=== PATIENT | female | born 1995 | race Caucasian/White ===

== ENCOUNTER 2018-12-31 16:07 | Inpatient (IN) | payer OTHER ==
[~2018-12-31] VITALS: Ht 129.5 cm; Wt 36.6 kg
[2018-12-31] VITALS (27 sets, daily range): BP systolic 91–123; BP diastolic 56–94; PULSE 96–110; RESP 14–45
[~2018-12-31 16:07] MED LIST: ACET325S GTB; BALS3OIN TP; BISA10SU55 RC; CHLO473M4 MM; CIPR500T4 GTB; DOCU50LI23 GTB; ENOX30DI2 SC; FLUC200T52 GTB; HYDR-3670 IV*; IVAB5TAB PO; LABE5VIA IV; LACT10SO21 PO; LEVA0.3129 INHALATION; LEVE500S8 GTB; LORA5SOL41 GTB; MAGN400O19 GTB; METO-448 GTB; MULT9LIQ4 G-TUBE; NA P133E10 RC; NYST1000 PO; ONDA4SOL IV*; POLY17PO6 GTB; PROC5VIA4 IV; PSL6PK GTB; VALP250S3 GTB; [UNRECOGNIZED DRUG - CODE] GTB
[2018-12-31] MEDS ORDERED: ROCURONIUM 50 MG INJ ONE (18:53)
[2018-12-31] MEDS ORDERED: ONDANSETRON 4 MG INJ ONE (18:53)
[2018-12-31] MEDS ORDERED: MIDAZOLAM 1 MG/ML 2 ML INJ ONE (19:17)
[2018-12-31] MEDS: morphine 2 MG INJ IV PRN (22:01)
[2018-12-31] MEDS: ONDANSETRON 4 MG INJ IV PRN (22:01)
[2019-01-01] VITALS (17 sets, daily range): BP systolic 126–134; BP diastolic 68–88; PULSE 111–124; RESP 14–16
[2019-01-01] MEDS: D5-NS + KCL 20 MEQ 1,000 ML IV SCH ×3 (02:47→13:14)
[2019-01-01] MEDS: morphine 2 MG INJ IV PRN ×3 (03:51→15:41)
[2019-01-01] MEDS: PANTOPRAZOLE 40 MG INJ IV SCH (06:16)
[2019-01-01] MEDS: ENOXAPARIN 40 MG/0.4 ML SYG SC SCH (10:16)
[2019-01-01] MEDS ORDERED: PROCHLORPERAZINE 10 MG INJ IV PRN (10:30)
[2019-01-01] MEDS ORDERED: TRIMETHOBENZAMIDE 300 MG CAP GTB PRN (10:30)
[2019-01-01] MEDS ORDERED: LEVALBUTEROL (NEB) 0.31 MG/3 ML AMP NEB PRN (10:30)
[2019-01-01] MEDS ORDERED: ONDANSETRON (2 MG/2.5 ML PO SYG) GTB PRN (10:30)
[2019-01-01] MEDS ORDERED: ONDANSETRON 4 MG TAB GTB PRN (11:30)
[2019-01-01] MEDS ORDERED: LABETALOL 100MG INJ IV SCH (12:00)
[2019-01-01] MEDS: LABETALOL HCL 20MG INJ IV SCH ×2 (12:56→18:28)
[2019-01-01] MEDS: NYSTATIN SUSP 5 ML CUP PO SCH ×3 (13:00→21:00)
[2019-01-01] MEDS: LACTULOSE 30ML CUP PO SCH ×2 (13:00→21:00)
[2019-01-01] MEDS: CEFEPIME 1GM/50 ML (PMX) 50 ML IVPB SCH ×2 (13:14→22:05)
[2019-01-01] MEDS: METOPROLOL 25 MG TAB GTB SCH ×2 (14:00→22:00)
[2019-01-01] MEDS: VALPROIC ACID LIQUID CUP 250 MG/5 ML CUP GTB SCH (16:58)
[2019-01-01] MEDS: CIPROFLOXACIN 500 MG TAB GTB SCH (21:00)
[2019-01-01] MEDS: POLYETHYLENE GLYCOL 17 GM PACKET GTB SCH (21:00)
[2019-01-01] MEDS ORDERED: VALPROIC ACID LIQUID CUP 250 MG/5 ML CUP GTB SCH (21:00)
[2019-01-01] MEDS: DOCUSATE SODIUM 10 MG/ML (10ML CUP) GTB SCH (21:00)
[2019-01-01] MEDS ORDERED: VANCOMYCIN IV PER PHARMACY XX SCH (21:00)
[2019-01-01] MEDS ORDERED: VANCOMYCIN 750 MG (PMX) 250 ML IVPB SCH (21:30)
[2019-01-01] MEDS: CHLORHEXIDINE GLUCONATE 15 ML UD CUP MM SCH (21:57)
[2019-01-02] VITALS (19 sets, daily range): BP systolic 113–128; BP diastolic 62–84; PULSE 65–111; RESP 14–17
[2019-01-02] MEDS: LEVETIRACETAM 1000 MG (PMX) 100 ML IVPB SCH ×3 (00:09→21:50)
[2019-01-02] MEDS: morphine 2 MG INJ IV PRN ×2 (00:11→11:23)
[2019-01-02] MEDS: LABETALOL HCL 20MG INJ IV SCH ×4 (00:38→18:41)
[2019-01-02] MEDS: D5-NS + KCL 20 MEQ 1,000 ML IV SCH ×3 (01:55→21:58)
[2019-01-02] MEDS: METOPROLOL 25 MG TAB GTB SCH ×3 (06:00→22:00)
[2019-01-02] MEDS: PANTOPRAZOLE 40 MG INJ IV SCH (06:16)
[2019-01-02] MEDS: ENOXAPARIN 40 MG/0.4 ML SYG SC SCH (06:52)
[2019-01-02] MEDS: POTASSIUM CHLORIDE 100 ML IVPB SCH ×2 (07:57→11:22)
[2019-01-02] MEDS ORDERED: MAGNESIUM SULFATE 2 GM/50 ML 50 ML IVPB ONE (08:00)
[2019-01-02] MEDS ORDERED: LORATADINE (1 MG/ML PO SYG) GTB SCH (09:00)
[2019-01-02] MEDS: MAGNESIUM HYDROXIDE 30ML CUP GTB SCH (09:00)
[2019-01-02] MEDS: CIPROFLOXACIN 500 MG TAB GTB SCH ×2 (09:00→21:00)
[2019-01-02] MEDS: NYSTATIN SUSP 5 ML CUP PO SCH ×4 (09:00→21:00)
[2019-01-02] MEDS ORDERED: BISACODYL 10 MG SUPP PR SCH (09:00)
[2019-01-02] MEDS: DOCUSATE SODIUM 10 MG/ML (10ML CUP) GTB SCH ×2 (09:00→21:00)
[2019-01-02] MEDS: VALPROIC ACID LIQUID CUP 250 MG/5 ML CUP GTB SCH (09:00)
[2019-01-02] MEDS: LACTULOSE 30ML CUP PO SCH ×2 (09:00→12:00)
[2019-01-02] MEDS: POLYETHYLENE GLYCOL 17 GM PACKET GTB SCH (09:00)
[2019-01-02] MEDS: FLUCONAZOLE 200 MG TAB GTB SCH (09:00)
[2019-01-02] MEDS ORDERED: NA PHOSPHATE/BIPHOS 133 ML ENEMA PR SCH (09:00)
[2019-01-02] MEDS: CEFEPIME 1GM/50 ML (PMX) 50 ML IVPB SCH ×2 (09:47→22:23)
[2019-01-02] MEDS: CHLORHEXIDINE GLUCONATE 15 ML UD CUP MM SCH ×2 (10:32→22:23)
[2019-01-02] MEDS: VANCOMYCIN 500 MG (PMX) 100 ML IVPB SCH (11:22)
[2019-01-02] MEDS: VALPROATE INJ 250 MG in SOD CHLORIDE 0.9% 50 ML IVPB SCH ×2 (16:32→22:51)
[2019-01-03] VITALS (18 sets, daily range): BP systolic 99–125; BP diastolic 60–80; PULSE 101–110; RESP 14–20
[2019-01-03] MEDS: VANCOMYCIN 500 MG (PMX) 100 ML IVPB SCH (00:09)
[2019-01-03] MEDS: LABETALOL HCL 20MG INJ IV SCH ×4 (00:21→17:10)
[2019-01-03] MEDS: METOPROLOL 25 MG TAB GTB SCH ×3 (06:00→21:30)
[2019-01-03] MEDS: PANTOPRAZOLE 40 MG INJ IV SCH (06:36)
[2019-01-03] MEDS: VALPROATE INJ 250 MG in SOD CHLORIDE 0.9% 50 ML IVPB SCH ×3 (06:43→21:32)
[2019-01-03] MEDS ORDERED: IOHEXOL 14.3 MG(I)/ML (ADULT) BTL PO ONE ×2 (08:30→09:30)
[2019-01-03] MEDS: CIPROFLOXACIN 500 MG TAB GTB SCH (09:00)
[2019-01-03] MEDS: LORATADINE 10 MG TAB GTB SCH (09:00)
[2019-01-03] MEDS: MAGNESIUM HYDROXIDE 30ML CUP GTB SCH (09:00)
[2019-01-03] MEDS: FLUCONAZOLE 200 MG TAB GTB SCH (09:00)
[2019-01-03] MEDS ORDERED: ACETAMINOPHEN (10 MG/ML) IV SYG IV* PRN (09:30)
[2019-01-03] MEDS ORDERED: ACETAMINOPHEN 1000MG/100ML IV 65 ML IVPB PRN (10:00)
[2019-01-03] MEDS: NYSTATIN SUSP 5 ML CUP PO SCH ×4 (10:09→21:00)
[2019-01-03] MEDS: CHLORHEXIDINE GLUCONATE 15 ML UD CUP MM SCH ×2 (10:09→22:52)
[2019-01-03] MEDS: D5-NS + KCL 20 MEQ 1,000 ML IV SCH ×3 (10:10→22:51)
[2019-01-03] MEDS: LEVETIRACETAM 1000 MG (PMX) 100 ML IVPB SCH ×2 (10:11→20:08)
[2019-01-03] MEDS: CEFEPIME 1GM/50 ML (PMX) 50 ML IVPB SCH ×2 (10:11→20:37)
[2019-01-03] MEDS: ENOXAPARIN 40 MG/0.4 ML SYG SC SCH (10:30)
[2019-01-03] MEDS ORDERED: VANCOMYCIN 500 MG (PMX) 100 ML IVPB SCH (16:00)
[2019-01-04] VITALS (18 sets, daily range): BP systolic 111–130; BP diastolic 17–85; PULSE 72–108; RESP 14–20
[2019-01-04] MEDS: LABETALOL HCL 20MG INJ IV SCH ×2 (06:00)
[2019-01-04] MEDS: METOPROLOL 25 MG TAB GTB SCH ×3 (06:00→22:00)
[2019-01-04] MEDS: PANTOPRAZOLE 40 MG INJ IV SCH (06:35)
[2019-01-04] MEDS: ENOXAPARIN 40 MG/0.4 ML SYG SC SCH (06:45)
[2019-01-04] MEDS ORDERED: LABETALOL HCL 20MG INJ IV PRN (07:00)
[2019-01-04] MEDS: VALPROATE INJ 250 MG in SOD CHLORIDE 0.9% 50 ML IVPB SCH ×3 (07:06→22:52)
[2019-01-04] MEDS: CHLORHEXIDINE GLUCONATE 15 ML UD CUP MM SCH ×2 (09:00→21:41)
[2019-01-04] MEDS: FLUCONAZOLE 200 MG TAB GTB SCH (09:00)
[2019-01-04] MEDS ORDERED: IOHEXOL 14.3 MG(I)/ML (ADULT) BTL PO ONE (09:00)
[2019-01-04] MEDS: LORATADINE 10 MG TAB GTB SCH (09:00)
[2019-01-04] MEDS: MAGNESIUM HYDROXIDE 30ML CUP GTB SCH (09:00)
[2019-01-04] MEDS: NYSTATIN SUSP 5 ML CUP PO SCH ×4 (09:00→21:00)
[2019-01-04] MEDS: CEFEPIME 1GM/50 ML (PMX) 50 ML IVPB SCH ×2 (09:15→21:36)
[2019-01-04] MEDS: LEVETIRACETAM 1000 MG (PMX) 100 ML IVPB SCH ×2 (09:16→20:58)
[2019-01-04] MEDS: VANCOMYCIN 500 MG (PMX) 100 ML IVPB SCH (11:18)
[2019-01-04] MEDS ORDERED: IOHEXOL 300MG/ML 150 ML BTL ONE (13:33)
[2019-01-04] MEDS ORDERED: SOD CHLORIDE 0.9% 100 ML ONE (13:33)
[2019-01-04] MEDS: D5-NS + KCL 20 MEQ 1,000 ML IV SCH ×2 (14:28→23:55)
[2019-01-05] VITALS (18 sets, daily range): BP systolic 107–137; BP diastolic 65–88; PULSE 67–100; RESP 14–20
[2019-01-05] MEDS: VANCOMYCIN 500 MG (PMX) 100 ML IVPB SCH ×2 (03:35→21:32)
[2019-01-05] MEDS: PANTOPRAZOLE 40 MG INJ IV SCH (05:38)
[2019-01-05] MEDS: VALPROATE INJ 250 MG in SOD CHLORIDE 0.9% 50 ML IVPB SCH (05:39)
[2019-01-05] MEDS: METOPROLOL 25 MG TAB GTB SCH ×3 (05:43→21:33)
[2019-01-05] MEDS: ENOXAPARIN 40 MG/0.4 ML SYG SC SCH (07:03)
[2019-01-05] MEDS: MAGNESIUM HYDROXIDE 30ML CUP GTB SCH (09:00)
[2019-01-05] MEDS ORDERED: MAGNESIUM SULFATE 2 GM/50 ML 50 ML IVPB ONE (09:00)
[2019-01-05] MEDS: LEVETIRACETAM 1000 MG (PMX) 100 ML IVPB SCH ×2 (09:05→20:00)
[2019-01-05] MEDS: CHLORHEXIDINE GLUCONATE 15 ML UD CUP MM SCH ×2 (09:13→20:33)
[2019-01-05] MEDS: NYSTATIN SUSP 5 ML CUP PO SCH ×4 (09:50→20:33)
[2019-01-05] MEDS: FLUCONAZOLE 200 MG TAB GTB SCH (09:50)
[2019-01-05] MEDS: LORATADINE 10 MG TAB GTB SCH (09:50)
[2019-01-05] MEDS: CEFEPIME 1GM/50 ML (PMX) 50 ML IVPB SCH ×2 (09:51→20:33)
[2019-01-05] MEDS: POTASSIUM CHLORIDE 100 ML IVPB SCH ×2 (13:46→16:54)
[2019-01-05] MEDS: morphine 2 MG INJ IV PRN ×2 (15:44→21:32)
[2019-01-05] MEDS: D5-NS + KCL 20 MEQ 1,000 ML IV SCH ×2 (16:58→19:56)
[2019-01-05] MEDS: METOCLOPRAMIDE 10 MG INJ IV SCH (17:06)
[2019-01-05] MEDS: VALPROATE INJ 500 MG in SOD CHLORIDE 0.9% 50 ML IVPB SCH (18:10)
[2019-01-06] VITALS (18 sets, daily range): BP systolic 97–141; BP diastolic 52–84; PULSE 72–108; RESP 14–28
[2019-01-06] MEDS: METOCLOPRAMIDE 10 MG INJ IV SCH ×5 (00:26→23:58)
[2019-01-06] MEDS: VALPROATE INJ 500 MG in SOD CHLORIDE 0.9% 50 ML IVPB SCH ×2 (03:39→14:00)
[2019-01-06] MEDS: PANTOPRAZOLE 40 MG INJ IV SCH (06:07)
[2019-01-06] MEDS: METOPROLOL 25 MG TAB GTB SCH ×3 (06:08→21:13)
[2019-01-06] MEDS: ENOXAPARIN 40 MG/0.4 ML SYG SC SCH (06:17)
[2019-01-06] MEDS: CEFEPIME 1GM/50 ML (PMX) 50 ML IVPB SCH ×2 (09:33→21:35)
[2019-01-06] MEDS: LEVETIRACETAM 1000 MG (PMX) 100 ML IVPB SCH ×2 (09:34→21:12)
[2019-01-06] MEDS: LORATADINE 10 MG TAB GTB SCH (09:34)
[2019-01-06] MEDS: FLUCONAZOLE 200 MG TAB GTB SCH (09:34)
[2019-01-06] MEDS: NYSTATIN SUSP 5 ML CUP PO SCH ×4 (09:35→22:15)
[2019-01-06] MEDS: MAGNESIUM HYDROXIDE 30ML CUP GTB SCH (09:35)
[2019-01-06] MEDS: CHLORHEXIDINE GLUCONATE 15 ML UD CUP MM SCH ×2 (09:35→21:13)
[2019-01-06] MEDS: D5W-0.45 NACL + KCL 20 MEQ 1,000 ML IV SCH ×2 (09:39→21:13)
[2019-01-06] MEDS: VANCOMYCIN 500 MG (PMX) 100 ML IVPB SCH ×2 (10:09→22:15)
[2019-01-07] VITALS (18 sets, daily range): BP systolic 95–131; BP diastolic 55–79; PULSE 60–98; RESP 14–20
[2019-01-07] MEDS: VALPROATE INJ 500 MG in SOD CHLORIDE 0.9% 50 ML IVPB SCH (01:49)
[2019-01-07] MEDS: METOCLOPRAMIDE 10 MG INJ IV SCH ×3 (05:53→17:16)
[2019-01-07] MEDS: PANTOPRAZOLE 40 MG INJ IV SCH (05:53)
[2019-01-07] MEDS: METOPROLOL 25 MG TAB GTB SCH ×3 (05:54→22:25)
[2019-01-07] MEDS: ENOXAPARIN 40 MG/0.4 ML SYG SC SCH (06:27)
[2019-01-07] MEDS: CHLORHEXIDINE GLUCONATE 15 ML UD CUP MM SCH ×2 (07:51→22:25)
[2019-01-07] MEDS: NYSTATIN SUSP 5 ML CUP PO SCH ×4 (07:52→22:25)
[2019-01-07] MEDS: MAGNESIUM HYDROXIDE 30ML CUP GTB SCH (07:52)
[2019-01-07] MEDS: CEFEPIME 1GM/50 ML (PMX) 50 ML IVPB SCH ×2 (07:52→22:25)
[2019-01-07] MEDS: LORATADINE 10 MG TAB GTB SCH (07:52)
[2019-01-07] MEDS: LEVETIRACETAM 1000 MG (PMX) 100 ML IVPB SCH ×2 (07:52→20:26)
[2019-01-07] MEDS: FLUCONAZOLE 200 MG TAB GTB SCH (07:52)
[2019-01-07] MEDS: VANCOMYCIN 500 MG (PMX) 100 ML IVPB SCH ×2 (10:25→22:38)
[2019-01-07] MEDS: D5W-0.45 NACL + KCL 20 MEQ 1,000 ML IV SCH (10:25)
[2019-01-07] MEDS ORDERED: MAGNESIUM SULFATE 2 GM/50 ML 50 ML IVPB ONE (11:00)
[2019-01-07] MEDS: POTASSIUM CHLORIDE 100 ML IVPB SCH ×2 (13:35→15:43)
[2019-01-07] MEDS: ACETAMINOPHEN 650MG/20.3ML CUP GTB PRN (22:28)
[2019-01-08] VITALS (19 sets, daily range): BP systolic 84–144; BP diastolic 45–78; PULSE 63–105; RESP 14–19
[2019-01-08] MEDS: METOCLOPRAMIDE 10 MG INJ IV SCH ×5 (00:32→23:03)
[2019-01-08] MEDS: VALPROATE INJ 250 MG in SOD CHLORIDE 0.9% 50 ML IVPB SCH ×2 (01:49→13:36)
[2019-01-08] MEDS: PANTOPRAZOLE 40 MG INJ IV SCH (06:37)
[2019-01-08] MEDS: METOPROLOL 25 MG TAB GTB SCH ×3 (06:38→21:37)
[2019-01-08] MEDS: ENOXAPARIN 40 MG/0.4 ML SYG SC SCH (07:03)
[2019-01-08] MEDS: MAGNESIUM HYDROXIDE 30ML CUP GTB SCH (09:00)
[2019-01-08] MEDS: FLUCONAZOLE 200 MG TAB GTB SCH (09:51)
[2019-01-08] MEDS: NYSTATIN SUSP 5 ML CUP PO SCH ×4 (09:51→21:36)
[2019-01-08] MEDS: CHLORHEXIDINE GLUCONATE 15 ML UD CUP MM SCH ×2 (09:51→21:36)
[2019-01-08] MEDS: LORATADINE 10 MG TAB GTB SCH (09:51)
[2019-01-08] MEDS: ONDANSETRON 4 MG INJ IV PRN ×2 (09:51→21:36)
[2019-01-08] MEDS: CEFEPIME 1GM/50 ML (PMX) 50 ML IVPB SCH ×2 (09:51→21:37)
[2019-01-08] MEDS: LEVETIRACETAM 1000 MG (PMX) 100 ML IVPB SCH ×2 (09:52→21:37)
[2019-01-08] MEDS: VANCOMYCIN 500 MG (PMX) 100 ML IVPB SCH ×2 (10:24→22:55)
[2019-01-08] MEDS: D5W-0.45 NACL + KCL 20 MEQ 1,000 ML IV SCH ×2 (10:24)
[2019-01-08] MEDS: ACETAMINOPHEN 650MG/20.3ML CUP GTB PRN (21:36)
[2019-01-09] VITALS (17 sets, daily range): BP systolic 99–137; BP diastolic 55–77; PULSE 85–107; RESP 14–19
[2019-01-09] MEDS: VALPROATE INJ 250 MG in SOD CHLORIDE 0.9% 50 ML IVPB SCH ×3 (01:47→17:26)
[2019-01-09] MEDS: D5W-0.45 NACL + KCL 20 MEQ 1,000 ML IV SCH ×2 (02:40→06:35)
[2019-01-09] MEDS: METOCLOPRAMIDE 10 MG INJ IV SCH ×4 (06:24→23:58)
[2019-01-09] MEDS: PANTOPRAZOLE 40 MG INJ IV SCH (06:24)
[2019-01-09] MEDS: METOPROLOL 25 MG TAB GTB SCH ×3 (06:27→22:15)
[2019-01-09] MEDS: ENOXAPARIN 40 MG/0.4 ML SYG SC SCH (06:52)
[2019-01-09] MEDS: MAGNESIUM HYDROXIDE 30ML CUP GTB SCH (09:00)
[2019-01-09] MEDS: LEVETIRACETAM 1000 MG (PMX) 100 ML IVPB SCH ×2 (09:00→22:14)
[2019-01-09] MEDS: CHLORHEXIDINE GLUCONATE 15 ML UD CUP MM SCH ×2 (09:00→22:14)
[2019-01-09] MEDS: NYSTATIN SUSP 5 ML CUP PO SCH ×4 (09:01→22:14)
[2019-01-09] MEDS: LORATADINE 10 MG TAB GTB SCH (09:37)
[2019-01-09] MEDS: FLUCONAZOLE 200 MG TAB GTB SCH (09:37)
[2019-01-09] MEDS: CEFEPIME 1GM/50 ML (PMX) 50 ML IVPB SCH (09:37)
[2019-01-09] MEDS: VANCOMYCIN 500 MG (PMX) 100 ML IVPB SCH ×3 (10:36→23:59)
[2019-01-10] VITALS (21 sets, daily range): BP systolic 92–120; BP diastolic 54–73; PULSE 79–112; RESP 14–25
[2019-01-10] MEDS: VALPROATE INJ 250 MG in SOD CHLORIDE 0.9% 50 ML IVPB SCH ×3 (02:17→18:21)
[2019-01-10] MEDS: METOCLOPRAMIDE 10 MG INJ IV SCH ×3 (05:48→18:21)
[2019-01-10] MEDS: PANTOPRAZOLE 40 MG INJ IV SCH (05:48)
[2019-01-10] MEDS: ENOXAPARIN 40 MG/0.4 ML SYG SC SCH (06:41)
[2019-01-10] MEDS: METOPROLOL 25 MG TAB GTB SCH ×2 (09:00→21:00)
[2019-01-10] MEDS: FLUCONAZOLE 200 MG TAB GTB SCH (09:42)
[2019-01-10] MEDS: MAGNESIUM HYDROXIDE 30ML CUP GTB SCH (09:43)
[2019-01-10] MEDS: NYSTATIN SUSP 5 ML CUP PO SCH ×4 (09:43→20:46)
[2019-01-10] MEDS: CHLORHEXIDINE GLUCONATE 15 ML UD CUP MM SCH ×2 (09:43→20:46)
[2019-01-10] MEDS: LORATADINE 10 MG TAB GTB SCH (09:44)
[2019-01-10] MEDS: LEVETIRACETAM 1000 MG (PMX) 100 ML IVPB SCH ×2 (09:44→20:46)
[2019-01-10] MEDS: VANCOMYCIN 500 MG (PMX) 100 ML IVPB SCH ×2 (12:36→21:39)
[2019-01-11] VITALS (18 sets, daily range): BP systolic 100–146; BP diastolic 57–93; PULSE 94–128; RESP 14–18
[2019-01-11] MEDS: METOCLOPRAMIDE 10 MG INJ IV SCH ×4 (00:21→17:29)
[2019-01-11] MEDS: VALPROATE INJ 250 MG in SOD CHLORIDE 0.9% 50 ML IVPB SCH ×3 (01:33→17:29)
[2019-01-11] MEDS: morphine 2 MG INJ IV PRN ×2 (04:24→22:48)
[2019-01-11] MEDS: PANTOPRAZOLE 40 MG INJ IV SCH (05:33)
[2019-01-11] MEDS: ENOXAPARIN 40 MG/0.4 ML SYG SC SCH (06:23)
[2019-01-11] MEDS ORDERED: NEUTRA-PHOS 250 MG PACKET PO ONE (08:30)
[2019-01-11] MEDS: METOPROLOL 25 MG TAB GTB SCH ×2 (09:00→21:28)
[2019-01-11] MEDS: LEVETIRACETAM 1000 MG (PMX) 100 ML IVPB SCH ×2 (09:23→21:29)
[2019-01-11] MEDS: CHLORHEXIDINE GLUCONATE 15 ML UD CUP MM SCH ×2 (09:27→21:29)
[2019-01-11] MEDS: NYSTATIN SUSP 5 ML CUP PO SCH ×4 (09:27→21:27)
[2019-01-11] MEDS: MAGNESIUM HYDROXIDE 30ML CUP GTB SCH (09:27)
[2019-01-11] MEDS: LORATADINE 10 MG TAB GTB SCH (09:32)
[2019-01-11] MEDS: FLUCONAZOLE 200 MG TAB GTB SCH (09:32)
[2019-01-11] MEDS: VANCOMYCIN 500 MG (PMX) 100 ML IVPB SCH ×2 (09:33→22:32)
[2019-01-11] MEDS: LACTOBACILLUS RHAMNOSUS CAP GTB SCH (21:27)
[2019-01-12] VITALS (18 sets, daily range): BP systolic 98–106; BP diastolic 57–69; PULSE 78–94; RESP 14–20
[2019-01-12] MEDS: METOCLOPRAMIDE 10 MG INJ IV SCH ×5 (00:33→22:09)
[2019-01-12] MEDS: VALPROATE INJ 250 MG in SOD CHLORIDE 0.9% 50 ML IVPB SCH ×3 (01:17→17:39)
[2019-01-12] MEDS: ACETAMINOPHEN 650MG/20.3ML CUP GTB PRN (01:25)
[2019-01-12] MEDS: PANTOPRAZOLE 40 MG INJ IV SCH (05:05)
[2019-01-12] MEDS: ENOXAPARIN 40 MG/0.4 ML SYG SC SCH (07:38)
[2019-01-12] MEDS: LEVETIRACETAM 1000 MG (PMX) 100 ML IVPB SCH ×2 (08:35→22:01)
[2019-01-12] MEDS: VANCOMYCIN 500 MG (PMX) 100 ML IVPB SCH ×2 (09:44→22:02)
[2019-01-12] MEDS: NYSTATIN SUSP 5 ML CUP PO SCH ×4 (09:49→22:01)
[2019-01-12] MEDS: CHLORHEXIDINE GLUCONATE 15 ML UD CUP MM SCH ×2 (09:49→21:46)
[2019-01-12] MEDS: LACTOBACILLUS RHAMNOSUS CAP GTB SCH ×2 (09:49→21:48)
[2019-01-12] MEDS: LORATADINE 10 MG TAB GTB SCH (09:49)
[2019-01-12] MEDS: METOPROLOL 25 MG TAB GTB SCH ×2 (09:49→21:49)
[2019-01-12] MEDS: FLUCONAZOLE 200 MG TAB GTB SCH (09:49)
[2019-01-12] MEDS: MAGNESIUM HYDROXIDE 30ML CUP GTB SCH (09:49)
[2019-01-13] VITALS (18 sets, daily range): BP systolic 105–113; BP diastolic 60–71; PULSE 78–102; RESP 14–18
[2019-01-13] MEDS: VALPROATE INJ 250 MG in SOD CHLORIDE 0.9% 50 ML IVPB SCH ×3 (02:39→17:41)
[2019-01-13] MEDS: PANTOPRAZOLE 40 MG INJ IV SCH (06:15)
[2019-01-13] MEDS: METOCLOPRAMIDE 10 MG INJ IV SCH ×3 (06:17→17:41)
[2019-01-13] MEDS: ENOXAPARIN 40 MG/0.4 ML SYG SC SCH (06:23)
[2019-01-13] MEDS: LEVETIRACETAM 1000 MG (PMX) 100 ML IVPB SCH ×2 (08:09→21:39)
[2019-01-13] MEDS: NYSTATIN SUSP 5 ML CUP PO SCH ×4 (08:13→21:39)
[2019-01-13] MEDS: LACTOBACILLUS RHAMNOSUS CAP GTB SCH ×2 (08:14→21:41)
[2019-01-13] MEDS: FLUCONAZOLE 200 MG TAB GTB SCH (08:14)
[2019-01-13] MEDS: METOPROLOL 25 MG TAB GTB SCH ×2 (08:14→21:41)
[2019-01-13] MEDS: LORATADINE 10 MG TAB GTB SCH (08:14)
[2019-01-13] MEDS: MAGNESIUM HYDROXIDE 30ML CUP GTB SCH (08:15)
[2019-01-13] MEDS: CHLORHEXIDINE GLUCONATE 15 ML UD CUP MM SCH ×2 (08:15→21:39)
[2019-01-14] VITALS (18 sets, daily range): BP systolic 106–117; BP diastolic 59–74; PULSE 86–115; RESP 14–18
[2019-01-14] MEDS: METOCLOPRAMIDE 10 MG INJ IV SCH ×4 (02:30→17:28)
[2019-01-14] MEDS: VALPROATE INJ 250 MG in SOD CHLORIDE 0.9% 50 ML IVPB SCH (02:33)
[2019-01-14] MEDS: PANTOPRAZOLE 40 MG INJ IV SCH (06:08)
[2019-01-14] MEDS: ENOXAPARIN 40 MG/0.4 ML SYG SC SCH (06:14)
[2019-01-14] MEDS: MAGNESIUM HYDROXIDE 30ML CUP GTB SCH (08:10)
[2019-01-14] MEDS: CHLORHEXIDINE GLUCONATE 15 ML UD CUP MM SCH ×2 (08:10→21:18)
[2019-01-14] MEDS: LACTOBACILLUS RHAMNOSUS CAP GTB SCH ×2 (08:11→21:18)
[2019-01-14] MEDS: LORATADINE 10 MG TAB GTB SCH (08:11)
[2019-01-14] MEDS: FLUCONAZOLE 200 MG TAB GTB SCH (08:11)
[2019-01-14] MEDS: NYSTATIN SUSP 5 ML CUP PO SCH ×4 (08:11→21:18)
[2019-01-14] MEDS: METOPROLOL 25 MG TAB GTB SCH ×2 (08:12→21:19)
[2019-01-14] MEDS: VALPROIC ACID LIQUID CUP 250 MG/5 ML CUP GTB SCH ×3 (10:54→21:18)
[2019-01-14] MEDS: LEVETIRACETAM (100 MG/ML) 5ML CUP GTB SCH ×2 (10:55→21:18)
[2019-01-15] VITALS (16 sets, daily range): BP systolic 99–113; BP diastolic 56–68; PULSE 83–114; RESP 14–18
[2019-01-15] MEDS: METOCLOPRAMIDE 10 MG INJ IV SCH ×4 (01:43→17:39)
[2019-01-15] MEDS ORDERED: LANSOPRAZOLE (SOLTAB) 30 MG TAB GTB SCH (06:00)
[2019-01-15] MEDS: ENOXAPARIN 40 MG/0.4 ML SYG SC SCH (06:51)
[2019-01-15] MEDS: MAGNESIUM HYDROXIDE 30ML CUP GTB SCH (09:00)
[2019-01-15] MEDS: CHLORHEXIDINE GLUCONATE 15 ML UD CUP MM SCH (09:52)
[2019-01-15] MEDS: LEVETIRACETAM (100 MG/ML) 5ML CUP GTB SCH (09:52)
[2019-01-15] MEDS: NYSTATIN SUSP 5 ML CUP PO SCH ×3 (09:52→17:38)
[2019-01-15] MEDS: LORATADINE 10 MG TAB GTB SCH (09:53)
[2019-01-15] MEDS: VALPROIC ACID LIQUID CUP 250 MG/5 ML CUP GTB SCH ×2 (09:53→12:37)
[2019-01-15] MEDS: LACTOBACILLUS RHAMNOSUS CAP GTB SCH (09:53)
[2019-01-15] MEDS: METOPROLOL 25 MG TAB GTB SCH (09:54)
[2019-01-15] MEDS: FLUCONAZOLE 200 MG TAB GTB SCH (09:54)
== END 2019-01-15 20:47 | DRG 853 ==
LOC: SDS 16:07 → REC 21:15 → 6WM 23:30
PROVIDERS: ADMIT Surgery; ATTEND Surgery
PROC: 5A1955Z Respiratory Ventilation, Greater than 96 Consecutive Hours (ICD-10-PCS; 2018-12-31)
PROC: 0DN84ZZ Release Small Intestine, Percutaneous Endoscopic Approach (ICD-10-PCS; principal; 2018-12-31 19:00)
DX: A41.9 Sepsis, unspecified organism (principal); G80.0 Spastic quadriplegic cerebral palsy; K56.51 Intestinal adhesions [bands], with partial obstruction; J96.10 Chronic respiratory failure, unspecified whether with hypoxia or hypercapnia; Z99.11 Dependence on respirator [ventilator] status; G91.9 Hydrocephalus, unspecified; G93.49 Other encephalopathy; K56.7 Ileus, unspecified; E87.8 Other disorders of electrolyte and fluid balance, not elsewhere classified; E87.6 Hypokalemia; E83.42 Hypomagnesemia; G40.909 Epilepsy, unspecified, not intractable, without status epilepticus; I10 Essential (primary) hypertension; K52.9 Noninfective gastroenteritis and colitis, unspecified; R13.10 Dysphagia, unspecified; R00.0 Tachycardia, unspecified; Z93.0 Tracheostomy status; Z87.01 Personal history of pneumonia (recurrent); Z98.2 Presence of cerebrospinal fluid drainage device; Z79.01 Long term (current) use of anticoagulants; Z86.11 Personal history of tuberculosis
CPT/HCPCS: 36600; 70450; 71045; 74018; 74177; 80048; 80053; 80076; 80164; 80202; 81001; 82803; 83605; 83735; 84100; 84145; 85025; 85651; 86140; 86635; 87045; 87075; 87086; 88304; 94002; 94003; C9113; J0692; J1650; J1953; J2250; J2270; J2405; J2765; J3010; J3370; J3475; J3480; Q9967